=== PATIENT | female | born 1940 | race Caucasian/White ===

== ENCOUNTER 2017-09-06 23:28 | Emergency (ER) | payer OTHER ==
[~2017-09-06] VITALS: Ht 154.9 cm; Wt 84.0 kg
[~2017-09-06 23:28] MED LIST: ALBUTEROL SULF8.5 GM IH; ALL DAY ALLERGY10 M3 PO; AMLODIPINE-ATO1 EAC2 PO; ASCORBIC ACID500 M3 PO; ASPIRIN325 MG PO; B-COMPLEX-VITA1 EACH PO; BENADRYL25 MG PO; CLEOCIN300 MG PO; DAILY VITAMIN1 EAC8 PO; DICLOFENAC SODI75 MG PO; FLONASE16 G1 BOTH NARES; FLOVENT 11120 INHALA IH; JANUVIA100 MG PO; LANTUS 3 M100 UNITS1 SC; LOSARTAN POTASS50 MG PO; METFORMIN HCL1000 MG PO; PANTOPRAZOLE SO40 MG PO; PERCOCET 5/31 TABLET PO; PRANDIN2 MG PO; TOPROL XL50 MG PO; VITAMIN D-32000 UNI1 PO
[2017-09-06 23:53] LABS: HEMATOCRIT 30.9 % (36.0-46.0); HEMOGLOBIN 10.4 G/DL (11.9-15.5); MCH 29.8 PG (29.0-34.0); MCHC 33.7 G/DL (30.0-36.0); MCV 88.5 FL (83-99); PLATELET COUNT 383 K/uL (156-360); RBC DIS.WIDTH-CV 13.1 % (11.8-14.6); RED BLOOD COUNT 3.49 M/uL (3.80-5.20); WHITE BLOOD COUNT 15.7 K/uL (4.1-10.2)
[2017-09-07 00:09] LABS: CHLORIDE 105 mEq/L (99-109); POTASSIUM 4.4 mEq/L (3.7-5.4); SODIUM 137 mEq/L (136-147)
[2017-09-07 00:11] LABS: GLUCOSE 160 mg/dL (70-99)
[2017-09-07 00:15] LABS: CREATININE 1.1 mg/dL (0.6-1.3); GFR ESTIMATE (CALCULATED) 51 mL/min/
[2017-09-07 00:16] LABS: UREA NITROGEN (BUN) 22 mg/dL (9-23)
[2017-09-07 00:22] LABS: TROP-I INTERPRETATION NEGATIVE; TROPONIN-I < 0.01 ng/mL (0.0-0.30)
[2017-09-07] MEDS ORDERED: AZITHROMYCIN250 MG1 PO (02:00)
[2017-09-07] MEDS ORDERED: ALBUTEROL2.5 MG/3 M IH (02:22)
[2017-09-07 02:32] VITALS: BP 139/64
== END 2017-09-07 02:35 | disposition home or self-care (01) ==
LOC: EME 23:28
DX: J44.1 Chronic obstructive pulmonary disease with (acute) exacerbation (principal); I10 Essential (primary) hypertension; E11.9 Type 2 diabetes mellitus without complications; Z95.1 Presence of aortocoronary bypass graft; Z79.4 Long term (current) use of insulin; Z88.0 Allergy status to penicillin; Z88.2 Allergy status to sulfonamides; Z79.82 Long term (current) use of aspirin; Z90.49 Acquired absence of other specified parts of digestive tract; Z87.891 Personal history of nicotine dependence
CPT/HCPCS: 71046; 80048; 84484; 85027; 93005; 94640; 94644; 99281; 99284; J1100